=== PATIENT | male | born 1995 | race Caucasian/White ===

== ENCOUNTER 2018-09-08 06:45 | Emergency (ER) | payer MEDICAID ==
[~2018-09-08] VITALS: Ht 182.9 cm; Wt 72.6 kg
[2018-09-08 06:51] VITALS: Ht 182.9 cm; Wt 72.6 kg
[2018-09-08 07:52] VITALS: BP 124/79
== END 2018-09-08 08:29 | disposition home or self-care (01) ==
LOC: ED 06:45
DX: S43.085A Other dislocation of left shoulder joint, initial encounter (principal); X58.XXXA Exposure to other specified factors, initial encounter; Y93.89 Activity, other specified; Y92.89 Other specified places as the place of occurrence of the external cause; Y99.8 Other external cause status; F17.210 Nicotine dependence, cigarettes, uncomplicated; Z59.0 Homelessness
CPT/HCPCS: G0500; J3010; J3490; Q0092